=== PATIENT | male | born 1960 | race Caucasian/White ===

== ENCOUNTER 2022-04-21 07:40 | Emergency (ER) | payer OTHER ==
[~2022-04-21] VITALS: Ht 175.3 cm; Wt 81.6 kg
[2022-04-21 07:44] VITALS: BP_SYST 138
--- NOTE | 2022-04-21 07:45 | NUR ---
Placed in room 07, report given to VICTORIANO. PT VSS. NAD NOTED. BOTH SIDE RAILS UP.
--- NOTE | 2022-04-21 08:05 | NUR ---
ER at bedside examining patient.
--- NOTE | 2022-04-21 08:07 | NUR ---
.URine and blood collection sent to laboratory supervisor Kina
--- NOTE | 2022-04-21 08:08 | NUR ---
PT bib self to ED from home. CC flank pain 02/02. Pt notes urinary retention and constant sharp pain for past 2 days. Denies SOB, Denies hematuria, denies NVD, skin intact aaox4 no neuro defecit. Pt notes history of kidney stone and Diverticulitis.
--- NOTE | 2022-04-21 08:10 | NUR ---
# 20 gauge angiocath placed to LAC. Use of asceptic technique. Opsite placed over site. Blood return noted. Blood for lab drawn from site. Flushed with 10 cc of normal saline. No evidence of infiltration noted. Patient tolerated well.
--- NOTE | 2022-04-21 08:12 | NUR ---
Medicated per MD orders. IVF infusing with no s/s of infiltration at this time. Will cont to monitor
--- NOTE | 2022-04-21 08:13 | NUR ---
.Pt treated for pain per MD order. IVP Tordadol administered by DEJAN Edgar
[2022-04-21] MEDS ORDERED: KETOROLAC TROMETHAMINE 15 MG VIAL IVP ONE (08:15)
[2022-04-21] MEDS ORDERED: NACL 0.9% 1,000 ML IV ONE (08:15)
[2022-04-21 08:20] LABS: BILIRUBIN,URINE NEGATIVE (NEGATIVE); BLOOD, URINE NEGATIVE (NEGATIVE); CLARITY/URINE CLEAR (CLEAR); COLOR,URINE YELLOW (YELLOW); GLUCOSE,URINE NEGATIVE (NEGATIVE); KETONES,URINE NEGATIVE (NEGATIVE); LEUKOCYTE ESTERASE ,URINE NEGATIVE (NEGATIVE); NITRITE, URINE NEGATIVE (NEGATIVE); PROTEIN URINE NEGATIVE (NEGATIVE); UROBILINOGEN,URINE 0.2 (0.2-1.0)
[2022-04-21 08:22] LABS: BASOPHILS % (AUTO) 0.8 % (0.0-2.0); EOSINOPHILS # (AUTO) 0.3 K/uL (0.0-0.4); EOSINOPHILS % (AUTO) 5.3 % (0.0-4.0); HEMATOCRIT 41.1 % (36-54); HEMOGLOBIN 14.2 g/dL (14.0-18.0); LYMPHOCYTES # (AUTO) 1.8 K/uL (1.0-5.5); LYMPHOCYTES % (AUTO) 32.7 % (20.5-51.5); MEAN CORPUSCULAR HEMOGLOBIN 33 pg (27-31); MEAN CORPUSCULAR HGB CONC 34 % (32-36); MEAN CORPUSCULAR VOLUME 95 fL (79.0-98.0); MONOCYTES # (AUTO) 0.4 K/uL (0.0-1.0); MONOCYTES % (AUTO) 6.7 % (1.7-9.3); NEUTROPHILS % (AUTO) 54.5 % (40.0-70.0); PLATELET COUNT (AUTO) 179 K/uL (130-430); RED BLOOD CELL COUNT(AUTO) 4.34 MIL/uL (4.2-6.2); RED CELL DISTRIBUTION WIDTH 13.3 % (9.0-15.0); WHITE BLOOD COUNT (AUTO) 5.5 K/uL (4.8-10.8)
[2022-04-21 08:36] LABS: CALCIUM 8.3 mg/dL (8.4-11.0); CREATININE 1.04 mg/dL (0.55-1.30); POTASSIUM 4.1 mmol/L (3.5-5.1)
[2022-04-21 08:40] LABS: ALBUMIN 3.7 g/dL (3.4-4.8); TOTAL BILIRUBIN 0.6 mg/dL (0.0-1.0)
[2022-04-21] MEDS ORDERED: HYDR-3917 PO (08:58)
[2022-04-21] MEDS ORDERED: IBUP-1969 PO (09:02)
[2022-04-21] MEDS ORDERED: TAMS-11 PO (09:02)
[2022-04-21 09:08] VITALS: BP_SYST 138
--- NOTE | 2022-04-21 09:21 | NUR ---
Patient given written and verbal discharge instructions and verbalizes understanding. ER MD discussed with patient the results and treatment provided. Patient in stable condition. ID arm band removed. Opportunity for questions provided and answered. Medication side effect fact sheet provided.
== END 2022-04-21 09:21 | disposition home or self-care (01) ==
LOC: SED 07:40
DX: N36.8 Other specified disorders of urethra (principal); R10.9 Unspecified abdominal pain; Z79.899 Other long term (current) drug therapy
CPT/HCPCS: 99283; 96374; 96361; 80053; 83690; 85025; 36415; 81003; J1885; J7030